=== PATIENT | female | born 1975 | race Caucasian/White ===

== ENCOUNTER 2018-02-11 20:28 | Emergency (ER) | payer BC, OTHER ==
[~2018-02-11] VITALS: Ht 162.6 cm; Wt 71.7 kg
[2018-02-11 20:45] VITALS: BP_SYST 120
== END 2018-02-11 21:40 | disposition home or self-care (01) ==
LOC: SED 20:28
DX: S46.011A Strain of muscle(s) and tendon(s) of the rotator cuff of right shoulder, initial encounter (principal); W31.89XA Contact with other specified machinery, initial encounter; Y93.89 Activity, other specified; Y92.89 Other specified places as the place of occurrence of the external cause; Y99.8 Other external cause status
CPT/HCPCS: 99281

== ENCOUNTER 2021-10-23 11:31 | Emergency (ER) | payer BC, OTHER ==
[~2021-10-23] VITALS: Ht 172.7 cm; Wt 68.0 kg
[2021-10-23 11:45] VITALS: BP_SYST 103
[2021-10-23 13:03] LABS: BASOPHILS # (AUTO) 0.1 K/uL (0.0-0.2); BASOPHILS % (AUTO) 0.8 % (0.0-2.0); EOSINOPHILS # (AUTO) 0.1 K/uL (0.0-0.4); EOSINOPHILS % (AUTO) 1.6 % (0.0-4.0); HEMATOCRIT 38.2 % (36-48); HEMOGLOBIN 13.2 g/dL (12.0-16.0); MEAN CORPUSCULAR HEMOGLOBIN 32 pg (27-31); MEAN CORPUSCULAR HGB CONC 35 % (32-36); MEAN CORPUSCULAR VOLUME 91 fL (79.0-98.0); MONOCYTES # (AUTO) 0.6 K/uL (0.0-1.0); MONOCYTES % (AUTO) 7.8 % (1.7-9.3); NEUTROPHILS # (AUTO) 5.1 K/uL (1.8-7.7); NEUTROPHILS % (AUTO) 64.8 % (40.0-70.0); PLATELET COUNT (AUTO) 241 K/uL (130-430); RED BLOOD CELL COUNT(AUTO) 4.19 MIL/uL (4.2-6.2); RED CELL DISTRIBUTION WIDTH 13.1 % (9.0-15.0); WHITE BLOOD COUNT (AUTO) 7.8 K/uL (4.8-10.8)
[2021-10-23 13:21] LABS: ANION GAP 4 (5-15); CALCIUM 9.6 mg/dL (8.4-11.0); CHLORIDE 103 mmol/L (98-107); CREATININE 0.73 mg/dL (0.55-1.30); GLUCOSE 98 mg/dL (70-99); POTASSIUM 3.8 mmol/L (3.5-5.1); SODIUM SERUM 137 mmol/L (136-145); UREA NITROGEN, BLOOD 10 mg/dL (8-21)
[2021-10-23 13:25] LABS: GFR AFRICAN AMERICAN 111 mL/min (>90)
[2021-10-23 13:29] LABS: ALANINE AMINOTRANSFERASE 25 U/L (12-78); ALBUMIN 3.3 g/dL (3.4-4.8); AMYLASE 38 U/L (0-100); ASPARTATE AMINOTRANSFERASE 19 U/L (10-37); LIPASE 157 U/L (73-393); TOTAL BILIRUBIN 0.7 mg/dL (0.0-1.0)
[2021-10-23 13:30] LABS: C-REACTIVE PROTEIN QUANT < 0.2 mg/dL (0-0.5)
[2021-10-23] MEDS ORDERED: HYDR-3917 PO (13:52)
[2021-10-23] MEDS ORDERED: IBUP-1969 PO (13:52)
[2021-10-23 14:00] LABS: BILIRUBIN,URINE NEGATIVE (NEGATIVE); BLOOD, URINE NEGATIVE (NEGATIVE); CLARITY/URINE CLEAR (CLEAR); COLOR,URINE YELLOW (YELLOW); GLUCOSE,URINE NEGATIVE (NEGATIVE); KETONES,URINE NEGATIVE (NEGATIVE); LEUKOCYTE ESTERASE ,URINE NEGATIVE (NEGATIVE); NITRITE, URINE NEGATIVE (NEGATIVE); PROTEIN URINE NEGATIVE (NEGATIVE); UROBILINOGEN,URINE 0.2 (0.2-1.0)
[2021-10-23 18:45] VITALS: BP_SYST 132
== END 2021-10-23 18:45 | disposition home or self-care (01) ==
LOC: SED 11:31
DX: N83.292 Other ovarian cyst, left side (principal); R10.32 Left lower quadrant pain; M79.662 Pain in left lower leg; Z79.899 Other long term (current) drug therapy
CPT/HCPCS: 36415; 76856-TC; 80053; 81003; 82150; 83690; 84703; 85025; 86140; 99284

== ENCOUNTER 2021-10-27 09:34 | Emergency (ER) | payer BC ==
[~2021-10-27] VITALS: Ht 165.1 cm; Wt 74.4 kg
[~2021-10-27 09:34] MED LIST: HYDR-3917 PO; IBUP-1969 PO
[2021-10-27 09:39] VITALS: BP_SYST 123
[2021-10-27 11:00] LABS: BASOPHILS % (AUTO) 0.7 % (0.0-2.0); EOSINOPHILS # (AUTO) 0.2 K/uL (0.0-0.4); EOSINOPHILS % (AUTO) 2.6 % (0.0-4.0); HEMATOCRIT 38.3 % (36-48); HEMOGLOBIN 13.3 g/dL (12.0-16.0); LYMPHOCYTES # (AUTO) 2.1 K/uL (1.0-5.5); LYMPHOCYTES % (AUTO) 30.1 % (20.5-51.5); MEAN CORPUSCULAR HEMOGLOBIN 31 pg (27-31); MEAN CORPUSCULAR HGB CONC 35 % (32-36); MEAN CORPUSCULAR VOLUME 90 fL (79.0-98.0); MONOCYTES # (AUTO) 0.6 K/uL (0.0-1.0); NEUTROPHILS % (AUTO) 58.6 % (40.0-70.0); PLATELET COUNT (AUTO) 224 K/uL (130-430); RED BLOOD CELL COUNT(AUTO) 4.24 MIL/uL (4.2-6.2); RED CELL DISTRIBUTION WIDTH 13.3 % (9.0-15.0); WHITE BLOOD COUNT (AUTO) 6.9 K/uL (4.8-10.8)
[2021-10-27 11:16] LABS: CALCIUM 9.7 mg/dL (8.4-11.0); CREATININE 0.82 mg/dL (0.55-1.30); POTASSIUM 4.2 mmol/L (3.5-5.1)
[2021-10-27 11:27] LABS: ALBUMIN 3.2 g/dL (3.4-4.8); TOTAL BILIRUBIN 0.5 mg/dL (0.0-1.0)
--- NOTE | 2021-10-27 11:44 | NUR ---
Patient to ER bed 06 to gown for evaluation. Side rails up.
--- NOTE | 2021-10-27 11:45 | NUR ---
Assume care of pt who came from home c/o L lower abd pain x 3 weeks. Pt denies medical or surgical hx. Patient is A&Ox4, calm and cooperative with VSS. Denies V/F/D. Will continue to monitor and provide care as ordered.
[2021-10-27] MEDS ORDERED: NAPR-688 PO ×2 (12:47)
[2021-10-27] MEDS ORDERED: NAPR-1169 PO (12:50)
[2021-10-27] MEDS ORDERED: NAPROXEN 250 MG TABLET PO ONE (13:00)
[2021-10-27 13:12] VITALS: BP_SYST 123
--- NOTE | 2021-10-27 13:15 | NUR ---
atient given written and verbal discharge instructions and verbalizes understanding. ER MD discussed with patient the results and treatment provided. Patient in stable condition. ID arm band removed. Rx of Naproxen given. Patient educated on pain management and to follow up with PMD. Pain Scale 2/10 Opportunity for questions provided and answered. Medication side effect fact sheet provided.
--- NOTE | 2021-10-27 13:15 | NUR ---
Note ziggyone in EDM - 10/27/21 at 1315 by [email or web address] Patient given written and verbal discharge instructions and verbalizes understanding. ER discussed with patient the results and treatment provided. Patient in stable condition. ID arm band removed. No Rx given. Patient educated on pain management and to follow up with PMD. Pain Scale 2/10 Opportunity for questions provided and answered. Medication side effect fact sheet provided.
--- NOTE | 2021-10-27 13:15 | NUR ---
Patient given written and verbal discharge instructions and verbalizes understanding. ER MD discussed with patient the results and treatment provided. Patient in stable condition. ID arm band removed. No Rx given. Patient educated on pain management and to follow up with PMD. Pain Scale 2/10 Opportunity for questions provided and answered. Medication side effect fact sheet provided.
== END 2021-10-27 13:12 | disposition home or self-care (01) ==
LOC: SED 09:34
DX: N83.202 Unspecified ovarian cyst, left side (principal); R10.2 Pelvic and perineal pain; Z79.899 Other long term (current) drug therapy
CPT/HCPCS: 36415; 76376; 80053; 81025; 84702; 85025; 99284